=== PATIENT | female | born 1980 | race Caucasian/White ===

== ENCOUNTER → 2017-07-28 | Outpatient (CLI) | payer OTHER ==
[~2017-07-28] MED LIST: CYCL10TA2 PO; MULT1TAB52 PO; OXYC-323 PO; TRAZ50TA15 PO
--- NOTE | 2017-07-28 16:02 | EKG ---
[facility] [address] [place] [address] Test Date: 2017-07-28 Test Time: 16:08:00 Pat Name: ELSIE YAO Department: Room: Gender: F Fabrication Technician: MR BOWENSB: 1980 Requested By: JESUS MANUEL KNOTT Order Number: [id number] Reading MD: Jj Riggs Measurements Intervals [place] Rate: 71 P: 56 RI: 172 QRS: 66 QRSD: 86 T: 39 QT: 372 QTc: 409 Interpretive Statements SINUS RHYTHM Electronically Signed On 07-29-2017 14:16:01 CDT by Jj Riggs
[2017-07-28 16:05] LABS: BASO % 0 % (0-3); EOS % 1 % (0-3); HEMOGLOBIN 14.3 g/dL (12.0-15.5); LYMPH # 1.3 x10^3/uL (1.0-4.8); LYMPH % 21 % (24-48); MEAN CORPUSCULAR HEMOGLOBIN 31 pg (25-35); MEAN CORPUSCULAR HGB CONC 34 g/dL (31-37); MEAN CORPUSCULAR VOLUME 90 fL (79-100); MONO % 6 % (0-9); NEUT % 72 % (31-73); PLATELET COUNT 260 x10^3/uL (140-400); RED BLOOD COUNT 4.64 x10^6/uL (3.50-5.40); RED CELL DISTRIBUTION WIDTH 12.9 % (11.5-14.5); WHITE BLOOD COUNT 6.3 x10^3/uL (4.0-11.0)
[2017-07-28 16:07] LABS: BILIRUBIN,URINE NEGATIVE (NEG); GLUCOSE,URINE NEGATIVE (NEG); NITRITE,URINE NEGATIVE (NEG); PROTEIN,URINE NEGATIVE (NEG-TRACE); UROBILINOGEN,URINE 0.2 mg/dL (0.2 mg/dL)
[2017-07-28 16:19] LABS: BACTERIA,URINE 0 /HPF (0-FEW); RBC,URINE 0 /HPF (0-2); SQUAMOUS EPITHELIAL CELL,UR OCC /LPF; WBC,URINE 0 /HPF (0-4)
[2017-07-28 16:44] LABS: ALBUMIN 3.7 g/dL (3.4-5.0); CALCIUM 8.8 mg/dL (8.5-10.1); CREATININE 0.8 mg/dL (0.6-1.0); GFR 80.3; POTASSIUM 3.8 mmol/L (3.5-5.1); TOTAL BILIRUBIN 0.2 mg/dL (0.2-1.0); TOTAL PROTEIN 7.3 g/dL (6.4-8.2)
--- NOTE | 2017-07-28 17:12 | RAD ---
Indication preop. Anticipated hysterectomy. Frontal and lateral views of the chest were obtained. No prior imaging of the chest is available. Heart and pulmonary vessels appear normal. The lungs are clear. There is no pleural fluid or pneumothorax. The bony structures appear grossly intact. IMPRESSION: Normal two-view chest
== END | disposition home or self-care (01) ==
LOC: SURGPAT 15:18
PROVIDERS: ATTEND Obstetrics & Gynecology
DX: Z01.818 Encounter for other preprocedural examination (principal)
CPT/HCPCS: 36415; 71020; 80053; 81001; 85025; 93005

== ENCOUNTER 2017-08-13 05:43 | Observation (INO) | payer OTHER ==
[~2017-08-13] VITALS: Ht 167.6 cm; Wt 75.7 kg
[2017-08-13] MEDS: IV RINGERS,LACTATED 1000ML 1,000 ML IV SCH ×2 (06:43→10:54)
[2017-08-13] MEDS ORDERED: fentaNYL PF VIAL 100 MCG/2 ML VIAL IV PRN (07:00)
[2017-08-13] MEDS ORDERED: HYDROmorphone 2 MG/ML VIAL IV PRN (07:00)
[2017-08-13] MEDS ORDERED: LIDOCAINE 1% PF 2 ML VIAL. ID PRN (07:00)
[2017-08-13] MEDS ORDERED: MORPHINE SULFATE 4 MG/ML DISP.SYRIN. IV PRN (07:00)
[2017-08-13] MEDS ORDERED: ONDANSETRON PF 4 MG/2 ML VIAL. IV PRN ×2 (07:00→09:45)
[2017-08-13] MEDS ORDERED: PROCHLORPERAZINE 10 MG/2 ML VIAL. IV PRN (07:00)
[2017-08-13] MEDS ORDERED: ESTROGENS, CONJ VAGINAL CREAM 30GM TUBE. ONE (07:07)
[2017-08-13] MEDS ORDERED: BUPIVACAINE-EPI 0.25%-1:200000 50 ML VIAL. ONE (07:07)
[2017-08-13] MEDS ORDERED: fentaNYL PF VIAL 100 MCG/2 ML VIAL ONE ×2 (07:12→08:12)
[2017-08-13] MEDS ORDERED: PROPOFOL 20 ML IV ONE (07:12)
[2017-08-13] MEDS ORDERED: MIDAZOLAM HCL/PF 2 MG/2 ML VIAL. ONE (07:12)
[2017-08-13] MEDS ORDERED: FAMOTIDINE 20 MG/2 ML VIAL ONE (07:12)
[2017-08-13] MEDS ORDERED: ONDANSETRON PF 4 MG/2 ML VIAL. ONE (07:12)
[2017-08-13] MEDS ORDERED: ROCURONIUM 50 MG/5 ML VIAL. ONE (07:12)
[2017-08-13] MEDS ORDERED: LIDOCAINE 2% PF Vial for OR 5 ML VIAL. ONE (07:12)
[2017-08-13] MEDS ORDERED: DEXAMETHASONE SOD PHOS 20 MG/5 ML VIAL. ONE (07:12)
[2017-08-13 07:27] LABS: NEG OBC UR NEG; POS OBC UR POS
[2017-08-13] MEDS ORDERED: PHENYLEPHRINE in 0.9% NACL PF 1 MG/10 ML DISP.SYRIN. IV ONE (08:20)
[2017-08-13] MEDS ORDERED: KETOROLAC 30 MG/ML INJ FOR OR. INJ ONE (09:16)
[2017-08-13] MEDS ORDERED: NEOSTIGMINE 10 MG/10 ML VIAL. ONE (09:16)
[2017-08-13] MEDS ORDERED: GLYCOPYRROLATE 1 MG/5 ML VIAL. ONE (09:16)
[2017-08-13] MEDS ORDERED: SEVOFLURANE 61 TO 120 MINUTES. IH ONE (09:29)
[2017-08-13] MEDS ORDERED: SIMETHICONE 80 MG TAB.CHEW PO PRN (09:45)
[2017-08-13] MEDS ORDERED: KETOROLAC 30 MG/ML INJ. IV PRN (09:45)
[2017-08-13] MEDS ORDERED: 0.9 % SODIUM CHLORIDE 10 ML DISP.SYRIN. IV PRN (09:45)
[2017-08-13] MEDS ORDERED: MAGNESIUM HYDROXIDE 2,400 MG/30 ML ORAL.SUSP. PO PRN (09:45)
[2017-08-13] MEDS ORDERED: NALOXONE 0.4 MG/ML VIAL. IV PRN (09:45)
[2017-08-13] MEDS ORDERED: CALCIUM CARBONATE 500 MG TAB.CHEW PO PRN (09:45)
[2017-08-13] MEDS ORDERED: MORPHINE SULFATE 2 MG/ML DISP.SYRIN. IV PRN (09:45)
[2017-08-13] MEDS ORDERED: diphenhydrAMINE HCL 25 MG CAPSULE PO PRN (09:45)
[2017-08-13] MEDS ORDERED: diphenhydrAMINE 50 MG/ML VIAL IV PRN (09:45)
[2017-08-13] MEDS ORDERED: LACTULOSE 20 GM/30 ML SOLUTION. PO PRN (09:45)
[2017-08-13] MEDS ORDERED: HYDROcodone/APAP 5/325MG 1 TAB TABLET PO PRN (09:45)
[2017-08-13] MEDS ORDERED: MAG HYDROX/ALUMINUM HYD/SIMETH 30 ML ORAL.SUSP PO PRN (09:45)
[2017-08-13] MEDS ORDERED: oxyCODONE/APAP 5/325 1 TAB TABLET PO PRN (09:45)
[2017-08-13] MEDS ORDERED: ZOLPIDEM 5 MG TABLET. PO PRN (09:45)
--- NOTE | 2017-08-13 09:51 | PDOC ---
BRIEF OPERATIVE NOTE Date: Aug 13, 2017 Pre-Op Diagnosis menorrhagia Post-Op Diagnosis same Procedure Performed LAVH, bilateral salpingectomy Surgeon Dr. Aziza Lopez Reliability Technologist Dr. oZe Cast Anesthesiologist Dr. Lane Anesthesia Type: General Blood Loss 25cc IV Fluid see anesthesia records Urine Output 150cc clear via marinelli Specimens Obtained cervix, uterus, bilateral tubes Findings enlarged uterus, normal bilateral tubes and ovaries Complications none Operative Note [id number] AZIZA LOPEZ MD Aug 13, 2017 09:51
[2017-08-13] MEDS: fentaNYL PF VIAL 100 MCG/2 ML VIAL IV PRN ×2 (10:09→10:53)
[2017-08-13 11:00] VITALS: BP 92/58
[2017-08-13 11:15] VITALS: BP 99/91
[2017-08-13 12:00] VITALS: BP 96/80
--- NOTE | 2017-08-13 12:39 | OP ---
DATE OF SURGERY: 08/13/2017 DATE OF SERVICE: 08/13/2017. PREOPERATIVE DIAGNOSES: Menorrhagia, enlarged uterus. POSTOPERATIVE DIAGNOSES: Menorrhagia, enlarged uterus. PROCEDURES: Laparoscopic assisted vaginal hysterectomy, bilateral salpingectomy. SURGEON: Dr. Jesus Manuel Lopez. LINE PULLER: Dr. Zoe Cast. ANESTHESIOLOGIST: Dr. Irby ANESTHESIA: General. ESTIMATED BLOOD LOSS: 25 mL. URINE OUTPUT: 150 mL, clear via Ochoa catheter. SPECIMEN REMOVED: Cervix, uterus, bilateral tubes. FINDINGS: Mildly enlarged uterus, normal bilateral tubes and ovaries. No significant pelvic adhesive disease. COMPLICATIONS: None. DESCRIPTION OF PROCEDURE: This patient was taken to the operating room where general anesthesia was placed. The patient was placed in dorsal lithotomy position in Max stirrups. The patient's abdomen and vagina were prepped and draped in the normal sterile fashion and a Ochoa catheter had been inserted under sterile technique. After a timeout was performed, a bivalve speculum was placed in the patient's vagina. A single-tooth tenaculum was used to grasp the anterior lip of the cervix. A 10 mL of 0.25% Marcaine with epinephrine was used to circumferentially inject around the cervix for both hemodissection and hemostatic purposes later. The Valtchev uterine manipulator was placed through the endocervical os, locked on the single tooth tenaculum and the bivalve speculum was then removed. Top gloves were discarded and changed and attention was turned to the abdomen, where a small supraumbilical skin incision was made over a previous existing scar, she had an abdominoplasty with her the umbilicus moved, so I used the top of that incision to make a small incision. The 5 mm Visiport was used to directly enter the abdominal cavity. Opening patient pressure was 1-2 mmHg. Carbon dioxide gas was used to then appropriately insufflate the abdominal cavity to maintain a pressure of 15 mmHg. The patient was placed in Trendelenburg position and direct abdominal placement was confirmed via the laparoscope. Right and left ports were placed after transilluminating the abdomen making a small incision and putting a 5 mm Ethicon atraumatic trocar in, under direct visualization without difficulty. The LigaSure was then used to cauterize and cut the left round ligament, creating a window in the mesosalpinx. The monopolar scissors were used to sharply create the bladder flap and the tube was elevated from the left ovary, it was mildly adhesed to it, it was taken off using the bipolar LigaSure, cauterizing and cutting the tube off leaving the ovary per patient request, as it was normal and then crossing the left uterine ovarian pedicle. Once this was done, everything was done exactly the same on the right, first starting at the round ligament, cauterizing and cutting it and creating a window in the mesosalpinx, going down and further meeting that bladder flap, making sure the bladder was down, elevating the right tube. We did find the ureter on both sides coursing well below the ovary and we left both ovaries per patient request. So going above the ovary below the tube, taking the tube, cauterizing and cutting and then crossing, the right uterine ovarian pedicle now, the uterine vessels were obtained on the right side, cauterizing and cutting and then this was done exactly the same on the left and then using the instruments to go down through the cardinal and broad ligaments down to the level of the uterosacral ligaments, the entire uterus was free and blanched. Everything was removed from the abdomen and attention was now turned vaginally. The Valtchev and single tooth were removed. A short weighted speculum was placed in the patient's vagina. Thyroid Mehdi clamps were placed on the anterior and posterior lips of the cervix respectively. A scalpel was used to make a circumferential incision in the cervix. An open Ray-Chica 4 x 4 was used to gently push up the anterior bladder peritoneum. I did digitally and bluntly enter the anterior cul-de-sac. The 4 x 4 was then removed and the bladder blade was inserted inside anterior colpotomy. The cervix was elevated. The posterior colpotomy was made sharply with the curved Casey scissors and a #0 Vicryl stitch was used to secure the posterior peritoneum here to the vaginal cuff. Once this was done, a curved Jumana was placed here and the needle was cut and passed off. The short weighted speculum was removed and replaced with the long weighted Romeo speculum. At this point curved Heaneys x 2 were placed on the patient's left uterosacral ligament. They were doubly clamped with curved Nicola's, cut with Casey scissors and suture ligated x 2 with 0 Vicryl. The second one was taken through the vaginal cuff securing the uterosacral ligaments to the vaginal cuff and tagged with a straight Jumana clamp and the needle was cut and passed off. This was done exactly the same on the right side, double clamping the uterosacrals with curved Heaneys and cutting with Casey scissors and suture ligating x 2 with #0 Vicryl and taking the second one to the vaginal cuff and cutting the needle off and tagging it with a straight Jumana clamp The remaining pedicles on both sides were delineated with the curved right angle clamp and the vaginal LigaSure Max was used to cauterize these, the cervix, uterus, bilateral tubes were delivered in total and passed off for permanent pathology. The anterior bladder peritoneum was grasped with a long Allis and the long weighted speculum was removed and replaced with a short weighted. A sponge stick was used to examine all pedicles. Once it was hemostatic, a 2-0 Vicryl was taken through the anterior bladder peritoneum, left uterosacral ligament, posterior peritoneum and right uterosacral ligament, thus closing the peritoneum in a pursestring like fashion, the right and left uterosacral tags were clipped, now a full length 2-0 Vicryl was taken anterior to posterior in a running locked fashion to close the vaginal cuff and it was tied to that posterior cuff tag. Once this was done and all hemostasis was achieved, all instruments were removed and all gloves were discarded and changed again to go back above. The gas was reinsufflated. The patient was placed back in Trendelenburg and a second look was done. Everything was hemostatic. The right and left pericolic gutters and the cul-de-sac. We did see the right upper quadrant, the appendix, everything that was normal as well. Copious irrigation revealed hemostasis. Tisseel was placed over the cuff and the procedure was ended. The right and left lower quadrant ports were taken out under direct visualization. These too were hemostatic. Gas was released from the umbilical port. All three port sites were closed with 4-0 nylon at the level of the skin and injected with another total of 10 mL of local. JESUS MANUEL LOPEZ MD DR: ANAIS/griffin JOB#: [id number] / [id number]
[2017-08-13 15:41] VITALS: BP 97/62
[2017-08-13 16:36] LABS: HEMATOCRIT 41.3 % (36.0-47.0); RED BLOOD COUNT 4.57 x10^6/uL (3.50-5.40); RED CELL DISTRIBUTION WIDTH 12.8 % (11.5-14.5); WHITE BLOOD COUNT 10.4 x10^3/uL (4.0-11.0)
[2017-08-13 18:37] VITALS: BP 109/72
--- NOTE | 2017-08-14 17:14 | PATHOLOGY ---
PATHOLOGY REPORT * * * * * * * * FINAL DIAGNOSIS: Uterus with attached right fallopian tube and detached left fallopian tube, laparoscopic assisted vaginal hysterectomy with bilateral salpingectomy: - Adenomyosis, uterine corpus, subbasal, focal, with mild myometrial hypertrophy (uterine weight 124 grams). - Focal active chronic inflammation and hemorrhage of exocervix. - Small endocervical polyp. - Late secretory endometrium. - Uterine serosal adhesions and focal endosalpingiosis. - Congestion and cystic [place] rests of bilateral fallopian tubes. COMMENT: There is no evidence of malignancy. (WR:ashkan; 08/14/2017) REPORT ELECTRONICALLY SIGNED BY: Octavio Patel M.D. DATE/TIME: 08/14/2017 17:13 * * * * * * * * GROSS PATHOLOGY: Received in formalin labeled "Elsie Esposito, uterus, cervix, bilateral tubes" is a hysterectomy specimen with attached right fimbriated fallopian tube and detached left segment of fallopian tube without fimbria. There is also a remnant portion of left fallopian tube on the uterus. The uterus weighs 124 g and measures 10.2 cm from fundus to cervix, 5.7 cm from cornu to cornu, and 4.0 cm from anterior to posterior. The serosa is pink-aguila and smooth with ragged adhesions on the anterior aspect over a 1.8 x 1.0 cm area. There are also multiple minute aguila-white nodules on the posterior aspect ranging from 0.1-0.3 cm, which cover a 2.0 x 1.5 cm area. The ectocervix is pink-aguila and glistening with a 1.6 x 1.0 cm hemorrhagic area between 7:00 and 10:00. The cervical os is slitlike and measures 1.5 cm. The cervix is probe patent and the specimen is opened to reveal a 4.5 x 3.6 cm endometrial cavity and a 3.0 x 0.8 cm endocervical canal. A possible endocervical polyp measuring 0.8 x 0.6 x 0.3 cm is identified in the anterior endocervical canal. The average endometrial thickness measures 0.7 cm and the average myometrial thickness measures 1.5 cm. No leiomyomata are identified. The right fallopian tube measures 5.8 cm in length and 0.7 cm in diameter and has multiple paratubal cysts ranging from 0.1-0.5 cm in greatest dimension. The segment of left fallopian tube measures combined in length 4.8 cm and 0.8 cm in diameter. Upon sectioning, the fallopian tubes have pinpoint lumens. Ship Propeller Finisher sections of the specimen are submitted as follows: A1 12:00 cervix A2 6:00 cervix A3 full-thickness anterior endomyometrium A4 full-thickness posterior endomyometrium A5 sales representative printing supplies right fallopian tube A6 sales representative printing supplies left fallopian tube A7 sales representative printing supplies posterior serosal nodules ([facility]; 08/13/2017) INITIAL CPT CODE(S): A; 02878 Professional services performed by [facility] at [address] [address] Technical services performed by [employer] at [address] [place] [address], [facility] [address], [place] [address]. SPECIMEN(S) RECEIVED: A.Uterus, cervix, bilateral fallopian tubes CLINICAL HISTORY: Pain, dysmenorrhea PATIENT: ELSIE ESPOSITO /AGE: 906/26/1980 (Age: 37) PATIENT #: [id number] ALT CASE #: SPECIMEN COLLECTION DATE: 08/13/2017 SPECIMEN RECEIVED DATE: 08/13/2017 [facility] - [address] [place] [address] - PHONE: [phone] * * * END OF REPORT * * *
== END 2017-08-13 19:06 | disposition home or self-care (01) ==
LOC: SURG 05:43 → 3 NORTH 09:58 → EDUNIT# 10:30
PROVIDERS: ADMIT Obstetrics & Gynecology; ATTEND Obstetrics & Gynecology
DX: N85.2 Hypertrophy of uterus (principal); N92.0 Excessive and frequent menstruation with regular cycle; N84.1 Polyp of cervix uteri; N94.89 Other specified conditions associated with female genital organs and menstrual cycle
CPT/HCPCS: 36415; 58571; 81025; 85027; 86850; 86900; 86901; 88307; C1769; G0378; G0379; J0690; J0780; J1100; J1885; J2250; J2370; J2405; J2704; J2710; J3010; J3490; J7030; J7120; S0028; J2001